=== PATIENT | female | born 1995 | race Caucasian/White ===

== ENCOUNTER 2018-03-11 15:08 | Emergency (ER) | payer OTHER ==
[~2018-03-11 15:08] MED LIST: BACDS PO; BIRTH CONTROL; CYCL10TA29 PO; IBUP800T37 PO; NITR-105 PO; ONDA8TAB98 PO; OXYC-865 PO; [UNRECOGNIZED DRUG - CODE] PO
--- NOTE | 2018-03-11 15:17 | ER Report ---
History and Physical Time Seen By MD: 15:17 Hx. of Stated Complaint: RIGHT ANKLE PAIN HPI/ROS CHIEF COMPLAINT: Rolled my right ankle HISTORY OF PRESENT ILLNESS: PT slipped on ice a day ago and rolled her right ankle. Pt has been walking on it but with pain. + swelling to lateral aspect of ankle. Pt denies numbness. no knee pain. REVIEW OF SYSTEMS: Musculoskeletal: No back pain., no knee pain, + r ankle pain Neuro: no numbness Allergies: Coded Allergies: No Known Allergies (Unverified Allergy, Mild, 03/11/18) Home Meds Reported Medications [ Control] No Conflict Check 04/14/14 Discontinued Scripts Oxycodone Hcl/Acetaminophen (PERCOCET 5-325 MG TABLET) 1 Each Tablet, 1 EACH PO Q4-6H PRN for PAIN, #12 Prov:BAM EDMOND DO 03/30/16 Past Medical/Surgical History pmhx: neg Pshx: hernia repair Reviewed Nurses Notes: Yes Hx Smoking: No Smoking Status: Never Smoker Hx Substance Use Disorder: No Hx Alcohol Use: No Constitutional Vital Sign - Last 24 Hours 03/11/18 03/11/18 03/11/18 03/11/18 15:08 15:13 15:15 15:30 Temp 98.3 Pulse 92 88 Resp 13 B/P (MAP) 126/82 (97) 126/82 106/84 (91) Pulse Ox 96 98 O2 Delivery Room Air Room Air 03/11/18 03/11/18 03/11/18 15:38 16:00 16:08 Pulse 89 90 B/P (MAP) 107/79 (88) Pulse Ox 96 94 O2 Delivery Room Air Room Air Physical Exam General appearance: [alert no distress] Right ankle: There is mild swelling over lateral maleolus significant swelling. There is no obvious deformity to the ankle. There is moderate tenderness to the lateral malleolus. Ankle joint is stable and there is no tenderness over the achilles tendon. The foot is non-tender without swelling. Neurologic exam: The patient has normal sensation distal to the injury. Vascular exam: Normal pulses and capillary refill in the foot [ ] DIFFERENTIAL DIAGNOSIS: After history and physical exam differential diagnosis was considered for ankle injury including sprain, fracture, dislocation and soft tissue injury. Medical Decision Making EKG/Imaging Imaging no fx; + soft tissue swelling ED Course/Re-evaluation ED Course xray Decision to Disposition Date: Mar 11, 2018 Decision to Disposition Time: 16:33 Depart Departure Latest Vital Signs Vital Signs Date Time Temp Pulse Resp B/P (MAP) Pulse Ox O2 Delivery O2 Flow Rate FiO2 03/11/18 16:08 90 94 Room Air 03/11/18 16:00 107/79 (88) 03/11/18 15:15 98.3 13 Impression: Primary Impression: SPRAIN OF UNSPECIFIED LIGAMENT OF RIGHT ANKLE, INIT ENCNTR Condition: Condition Unchanged Disposition: HOME OR SELF-CARE Referrals: [facility] Days Patient Instructions: Ankle Sprain (ED) Additional Instructions: Ice, elevate and rest. Walk with crutches the next 72 hours then partial weight bare as tolerated. Motrin (advil, ibuprofen) 600mg every 8 hours as needed for pain. If not improving follow up with orthopedics. DARLENE MENDEZ DO Mar 11, 2018 15:17
--- NOTE | 2018-03-11 16:25 | RADIOLOGY IMAGING REPORT ---
FACILITY: [facility] - [place] PATIENT NAME: Regina Crowley : 1995 MR: [id number] V: [id number] EXAM DATE: ORDERING PHYSICIAN: DARLENE MENDEZ TECHNOLOGIST: Location: [facility] [place] Patient: Regina Crowley : 1995 Visit/Account:[id number] Date of Sevice: 03/11/2018 EXAMINATION: Right ankle series, 3 views 03/11/2018 3:20 PM HISTORY: inverted ankle when slipped on ice; pain COMPARISON: None FINDINGS: Lateral soft tissues are swollen. Bony structures of right ankle are intact and anatomica lly aligned without fracture or other acute osseous abnormality evident. Incidental bone island in th e medial aspect of the talus. IMPRESSION: Lateral soft tissue swelling. No acute bony injury of the right ankle. Report Dictated By: Horace Rice MD at 03/11/2018 4:18 PM Report E-Signed By: Horace Rice MD at 03/11/2018 4:20 PM WSN:[id number]
[2018-03-11 16:30] VITALS: BP 108/76
== END 2018-03-11 16:43 | disposition home or self-care (01) ==
LOC: ER 15:16
DX: S93.401A Sprain of unspecified ligament of right ankle, initial encounter (principal); W00.0XXA Fall on same level due to ice and snow, initial encounter
CPT/HCPCS: 73610; 99283; L1930

== ENCOUNTER → 2018-08-21 | Outpatient (REF) | payer OTHER ==
[2018-08-21 15:06] LABS: PLATELET COUNT, AUTOMATED 369 K/uL (150-450)
== END ==
PROVIDERS: ATTEND Nurse Practitioner Family
DX: R10.9 Unspecified abdominal pain (principal)
CPT/HCPCS: 82040; 82150; 82247; 82310; 82374; 82435; 82565; 82947; 83690; 84075; 84132; 84155; 84295; 84450; 84460; 84520; 85025

== ENCOUNTER → 2018-08-21 | Outpatient (CLI) | payer OTHER ==
[~2018-08-21] MED LIST changes: +IOPAMIDOL 76% 100 ML INFUS BTL 100 ML ONE
--- NOTE | 2018-08-21 17:06 | RADIOLOGY IMAGING REPORT ---
FACILITY: [facility] - [place] PATIENT NAME: Regina Crowley : 1995 MR: [id number] V: [id number] EXAM DATE: ORDERING PHYSICIAN: MICHAEL VALIENTE TECHNOLOGIST: Location: [facility] [place] Patient: Regina Crowley : 1995 Visit/Account:[id number] Date of Sevice: 08/21/2018 EXAMINATION: CT abdomen and pelvis with and without contrast COMPARISON: None. HISTORY: Right-sided abdominal pain for 2 days. No history of immunosuppression or neutropenia. PROCEDURE: Multiplanar contrast enhanced CT of the abdomen and pelvis with and without 75 mL intraven ous Isovue 370. One of the following dose optimization techniques was utilized in the performance of this exam: Automated exposure control; adjustment of the mA and/or kV according to the patient's size ; or use of an iterative reconstruction technique. Specific details can be referenced in the [facility]'s radiology CT exam operational policy. FINDINGS: Visualized thorax: Negative. Liver: Negative. Gallbladder and biliary system: Negative Spleen: Negative. Pancreas: Negative. Adrenal glands: Negative. Kidneys and bladder: Negative. Vessels: Within normal limits. Bowel and mesentery: Stomach is within normal limits. Small bowel obstruction or inflammation. Append ix is within normal limits. Prominent cecal wall thickening and edema. No other definite site of colo adam inflammation is identified. Small amount stool in the colon. Pelvic organs: Negative. Lymph nodes: There are a few prominent lymph nodes in the right lower quadrant mesentery which are fa vored to be reactive. Free air/free fluid: Trace simple appearing pelvic free fluid is likely physiologic or reactive. No o rganized fluid collection. No pneumoperitoneum. Musculoskeletal: Negative. IMPRESSION: 1. Cecum wall inflammation is most suggestive of an infectious versus inflammatory colitis. 2. Unremarkable appendix. Results were discussed with MICHAEL VALIENTE at 08/21/2018 4:59 PM. Report Dictated By: Igor Medellin MD at 08/21/2018 4:48 PM Report E-Signed By: Igor Medellin MD at 08/21/2018 5:00 PM WSN:[id number]
== END ==
LOC: CT 15:55
PROVIDERS: ATTEND Nurse Practitioner Family
DX: R10.9 Unspecified abdominal pain (principal)
CPT/HCPCS: 74178; Q9967